=== PATIENT | male | born 1950 | race Hispanic/Latino ===

== ENCOUNTER → 2019-04-21 | Outpatient (CLI) | payer MEDICARE ==
[~2019-04-21] MED LIST: ACET-66 PO; ASPI-555 PO; DIPH25TA20 PO; FERR325T22 PO; FOLI0.4T2 PO; LEVE500T19 PO; LINA5TAB PO; LISI-617 PO; METF-446 PO; MIRT30TA6 PO; OMEP40CA37 PO; SERT100T12 PO; SITA100T12 PO; TAMS0.4C32 PO
== END | disposition home or self-care (01) ==
LOC: SHCH 10:06
PROVIDERS: ATTEND Internal Medicine Cardiovascular Disease
DX: I08.0 Rheumatic disorders of both mitral and aortic valves (principal); I11.9 Hypertensive heart disease without heart failure; I25.5 Ischemic cardiomyopathy
CPT/HCPCS: 93306